=== PATIENT | male | born 1965 | race Caucasian/White ===

== ENCOUNTER 2019-03-01 20:56 | Emergency (ER) | payer MEDICAID ==
[~2019-03-01] VITALS: Ht 182.9 cm; Wt 80.0 kg
[~2019-03-01 20:56] MED LIST: AMLO-150 PO; AMLO5TAB4 PO; AMPI3VIA IV; DOCU100C33 PO; HYDR-3341 PO; HYDR25TA6 PO; OXYC-293 PO
--- NOTE | 2019-03-01 21:10 | NUR ---
BIB [facility] [place], CLOTHES COVERED IN VOMIT. PT THINKS HE HAD A SEIZURE BECAUSE HE REMEMBERS SHAKING AND THEN PASSING OUT. PT DENIES HISTORY OF SEIZURES. ETOH ON BOARD WITH 1/5 OF VODKA. PT HAS HISTORY OF HTN AND ETOH, DENIES TAKING ANY MEDICATIONS DAILY. ACCUCHECK 126. PT GIVEN IV FLUIDS 550ML AND 4MG ZOFRAN IVP.
[2019-03-01 21:49] LABS: BASOPHILS # (AUTO) 0.07 x10^3/uL (0-0.1); BASOPHILS % (AUTO) 1 % (0-1); EOSINOPHILS # (AUTO) 0.02 x10^3/uL (0-0.4); EOSINOPHILS % (AUTO) 0 % (1-7); LYMPHOCYTES # (AUTO) 1.33 x10^3/uL (1-3.4); LYMPHOCYTES % (AUTO) 22 % (22-44); MD NO; MEAN CORPUSCULAR HEMOGLOBIN 31.5 pg (27.5-34.5); MEAN CORPUSCULAR HGB CONC 34.2 g/dL (33.2-36.2); MEAN CORPUSCULAR VOLUME 92.2 fL (81-97); MEAN PLATELET VOLUME 8.7 fL (7.4-10.4); MONOCYTES # (AUTO) 0.27 x10^3/uL (0.2-0.8); MONOCYTES % (AUTO) 5 % (2-9); NEUTROPHILS # (AUTO) 4.25 x10^3/uL (1.8-6.8); NEUTROPHILS % (AUTO) 72 % (42-75); PLATELET COUNT 259 x10^3/uL (130-400); RED BLOOD COUNT 4.43 x10^6/uL (4.38-5.82); RED CELL DISTRIBUTION WIDTH 13.5 % (9.4-14.8)
[2019-03-01 21:54] LABS: ALANINE AMINOTRANSFERASE 57 U/L (12-78); ALBUMIN 3.2 g/dL (3.4-5.0); ANION GAP 6 mmol/L (5-15); CHLORIDE 111 mmol/L (98-107); CREATININE 0.88 mg/dL (0.7-1.3)
[2019-03-01 21:56] LABS: ALKALINE PHOSPHATASE 59 U/L (45-117); BILIRUBIN,TOTAL 0.1 mg/dL (0.2-1.0)
--- NOTE | 2019-03-01 22:11 | NUR ---
PT SLEEPING. VSS.
--- NOTE | 2019-03-01 22:23 | NUR ---
PT TAKEN TO CT.
--- NOTE | 2019-03-01 22:35 | NUR ---
BACK FROM CT.
[2019-03-01 23:57] VITALS: BP 115/70
--- NOTE | 2019-03-01 23:57 | NUR ---
PT AMBULATED WITH NO ASSISTANCE. CLEAN CLOTHES GIVEN.
== END 2019-03-02 00:04 | disposition home or self-care (01) ==
LOC: ED 22:36
DX: S70.01XA Contusion of right hip, initial encounter (principal); F10.220 Alcohol dependence with intoxication, uncomplicated; I10 Essential (primary) hypertension; Z87.891 Personal history of nicotine dependence; W18.30XA Fall on same level, unspecified, initial encounter; Y93.89 Activity, other specified; Y92.89 Other specified places as the place of occurrence of the external cause; Y99.8 Other external cause status
CPT/HCPCS: 36415; 70450; 72170; 72192; 80053; 80307; 85025; 93005; 99284